=== PATIENT | male | born 1975 | race Asian ===

== ENCOUNTER 2022-05-29 15:38 | Emergency (ER) | payer MEDICAID, OTHER ==
[~2022-05-29] VITALS: Ht 177.8 cm; Wt 68.2 kg
[~2022-05-29 15:38] MED LIST: ARIP10TA38 PO
[2022-05-29 15:39] VITALS: BP 121/72
[2022-05-29] MEDS ORDERED: ACETAMINOPHEN 500 MG TABLET PO ONE (15:45)
[2022-05-29 15:58] LABS: COVID AG,FIA SOURCE NASOPHARYNGEAL
[2022-05-29 16:19] LABS: INFLUENZA TYPE A NEGATIVE FOR TYPE A (NEGATIVE); INFLUENZA TYPE B NEGATIVE FOR TYPE B (NEGATIVE)
== END 2022-05-29 16:40 | disposition home or self-care (01) ==
LOC: EMS 15:47
DX: J11.1 Influenza due to unidentified influenza virus with other respiratory manifestations (principal); F20.9 Schizophrenia, unspecified; F17.210 Nicotine dependence, cigarettes, uncomplicated; F12.90 Cannabis use, unspecified, uncomplicated; F15.90 Other stimulant use, unspecified, uncomplicated; Z59.00 Homelessness unspecified; Z20.822 Contact with and (suspected) exposure to COVID-19
CPT/HCPCS: 87804; 99283

== ENCOUNTER 2023-08-09 16:48 | Inpatient (IN) | payer MEDICAID, OTHER ==
[~2023-08-09] VITALS: Ht 175.3 cm; Wt 76.2 kg
[2023-08-09 20:37] LABS: BASOPHILS % (AUTO) 0.7 % (0.0-2.0); EOSINOPHILS % (AUTO) 2.1 % (1.0-6.0); HEMATOCRIT 36.4 % (41-53); HEMOGLOBIN 11.9 g/dL (13.5-17.5); LYMPHOCYTES % (AUTO) 18.7 % (22.0-44.0); MEAN CORPUSCULAR HEMOGLOBIN 29.8 pg (26.0-34.0); MEAN CORPUSCULAR HGB CONC 32.8 G/dL (31.0-37.0); MEAN CORPUSCULAR VOLUME 91 fL (80-100); MONOCYTES # (AUTO) 1.5 K/uL (0.1-1.0); MONOCYTES % (AUTO) 13.5 % (2.0-9.0); NEUTROPHILS # (AUTO) 7.1 K/uL (1.8-7.7); PLATELET COUNT (AUTO) 265 K/uL (150-450); RED CELL DISTRIBUTION WIDTH 13.2 % (11.5-14.5); WHITE BLOOD COUNT (AUTO) 10.9 K/uL (4.5-11.0)
[2023-08-09] MEDS: LORazepam 2 MG TABLET PO ONE (20:38)
[2023-08-09] MEDS: RisperiDONE 1 MG TABLET PO ONE (20:38)
[2023-08-09] MEDS: DiphenhydrAMINE HCL 25 MG CAPSULE PO ONE (20:38)
[2023-08-09 20:47] LABS: ANION GAP 12 mmol/L (8-16); CALCIUM, TOTAL 9.4 mg/dL (8.8-10.5); CARBON DIOXIDE 26 mmol/L (22-29); CHLORIDE 101 mmol/L (98-107); CREATININE 1.08 mg/dL (0.60-1.30); GLOMERULAR FILTR. RATE CALC > 60 mL/min (>60); GLUCOSE,RANDOM 88 mg/dL (70-110); POTASSIUM 3.6 mmol/L (3.5-5.1); SODIUM SERUM 139 mmol/L (136-145); UREA NITROGEN, BLOOD 21 mg/dL (7-18)
[2023-08-09 20:52] LABS: ALANINE AMINOTRANSFERASE 32 U/L (12-78); ALBUMIN 4.2 g/dL (3.4-5.0); ALKALINE PHOSPHATASE 87 U/L (46-116); ASPARTATE AMINOTRANSFERASE 41 U/L (15-37); BILIRUBIN,TOTAL 0.8 mg/dL (0.1-1.0); TOTAL PROTEIN, SERUM 7.7 g/dL (6.4-8.2)
[2023-08-09 21:35] LABS: ALCOHOL, BLOOD (SERUM) < 3 mg/dL (0-10)
[2023-08-09 23:28] LABS: COVID AG,FIA SOURCE NASAL SWAB
[2023-08-09 23:47] LABS: SARS-COV2 (COVID) ANTIGEN,FIA Negative (Negative)
[2023-08-10 00:20] VITALS: BP 110/61; PULSE 76; RESP 19; TEMP 97.4; O2SAT 98
[2023-08-10] MEDS ORDERED: MAG HYDROX/ALUMINUM HYD/SIMETH ES 30 ML SUSPENSION UDCUP PO PRN (05:15)
[2023-08-10] MEDS ORDERED: LOPERAMIDE HCL 2 MG CAPSULE PO PRN (05:15)
[2023-08-10] MEDS ORDERED: PETROLATUM,WHITE 28 GM JELLY TP PRN (05:15)
[2023-08-10] MEDS ORDERED: DOCUSATE SODIUM 100 MG CAPSULE PO PRN (05:15)
[2023-08-10] MEDS ORDERED: ACETAMINOPHEN 325 MG TABLET PO PRN (05:15)
[2023-08-10] MEDS ORDERED: MAGNESIUM HYDROXIDE SUSPENSION 30 ML UDCUP PO PRN (05:15)
[2023-08-10] MEDS ORDERED: OMEPRAZOLE 20 MG CAPSULE PO PRN (05:15)
[2023-08-10] MEDS ORDERED: ALBUTEROL SULFATE HFA 90 MCG/PUFF 8 GM INHALER IH PRN (05:15)
[2023-08-10] MEDS ORDERED: BENZOCAINE/MENTHOL LOZENGE PO PRN (05:15)
[2023-08-10] MEDS ORDERED: ONDANSETRON HCL 4 MG TABLET PO PRN (05:15)
[2023-08-10] MEDS ORDERED: CloNIDine HCL 0.1 MG TABLET PO PRN (05:15)
[2023-08-10 08:22] VITALS: BP 109/62; PULSE 104; RESP 17; TEMP 97.6; O2SAT 99
[2023-08-10 16:57] VITALS: BP 106/66; PULSE 81; RESP 18; TEMP 97.6
[2023-08-10] MEDS: IBUPROFEN 600 MG TABLET PO PRN (16:58)
[2023-08-10 18:09] VITALS: BP 109/76; PULSE 91; RESP 18; TEMP 97.8; O2SAT 0
[2023-08-10] MEDS: ZOLPIDEM TARTRATE 10 MG TABLET PO PRN (21:33)
[2023-08-10 22:00] VITALS: BP 95/52; PULSE 96; RESP 18; TEMP 98.6; O2SAT 97
[2023-08-10] MEDS: LORazepam 2 MG TABLET PO PRN (22:02)
[2023-08-11] MEDS: HALOPERIDOL 5 MG TABLET PO PRN (09:01)
[2023-08-11] MEDS: ARIPiprazole 10 MG TABLET PO SCH (09:01)
[2023-08-11 09:27] VITALS: BP 105/69; PULSE 84; RESP 18; TEMP 97.3; O2SAT 100
[2023-08-11 09:33] LABS: APPEARANCE,URINE CLEAR (CLEAR); BILIRUBIN,URINE NEGATIVE (NEGATIVE); COLOR,URINE LIGHT YELLOW (YELLOW); GLUCOSE, URINE (UA) NEGATIVE (NEGATIVE); KETONES,URINE NEGATIVE (NEGATIVE); LEUKOCYTE ESTERASE ,URINE SMALL (NEGATIVE); NITRATE,URINE NEGATIVE (NEGATIVE); OCCULT BLOOD,URINE NEGATIVE (NEGATIVE); PH,URINE 5.5 (5.0-8.0); PROTEIN,URINE NEGATIVE (NEGATIVE); SPECIFIC GRAVITIY, URINE 1.021 (1.003-1.030); UROBILINOGEN,URINE <=1.0 mg/dL (<=1.0)
[2023-08-11 09:36] LABS: PH,URINE DRUG SCREEN 5.5 (5.0-8.0)
[2023-08-11 09:42] LABS: ALCOHOL, URINE DRUG SCREEN NEGATIVE (NEGATIVE); AMPHET/METH SCREEN,URINE POSITIVE (NEGATIVE); BARBITURATE SCREEN, URINE NEGATIVE (NEGATIVE); BENZODIAZEPINES SCREEN,URINE NEGATIVE (NEGATIVE); CANNABINOID SCREEN,URINE NEGATIVE (NEGATIVE); COCAINE SCREEN,URINE NEGATIVE (NEGATIVE); METHADONE SCREEN, URINE NEGATIVE (NEGATIVE); OPIATE SCREEN,URINE NEGATIVE (NEGATIVE); PHENCYCLIDINE SCREEN,URINE NEGATIVE (NEGATIVE)
[2023-08-11 09:47] LABS: BACTERIA,URINE Rare /HPF (None Seen); RBC,URINE None Seen /HPF (0-2)
[2023-08-11] MEDS: BACITRACIN 28 GM OINTMENT TP PRN (15:20)
[2023-08-11 15:35] VITALS: BP 111/71; PULSE 89; RESP 17; TEMP 97.6
[2023-08-11 16:35] VITALS: BP 111/68; PULSE 71; RESP 17; TEMP 98
[2023-08-11 22:05] VITALS: BP 108/66; PULSE 82; RESP 18; TEMP 97.8
[2023-08-12 08:42] VITALS: BP 132/86; PULSE 88; RESP 18; TEMP 96.7; O2SAT 99
[2023-08-13 10:14] VITALS: BP 110/72; PULSE 70; RESP 18; TEMP 97; O2SAT 98
[2023-08-13] MEDS ORDERED: ARIP10TA38 PO (10:53)
== END 2023-08-13 16:37 | disposition home or self-care (01) | DRG 750 ==
LOC: EMS 16:52 → 3EC 21:40
PROVIDERS: ADMIT Psychiatry & Neurology Psychiatry; ATTEND Psychiatry & Neurology Psychiatry
DX: F25.9 Schizoaffective disorder, unspecified (principal); F29 Unspecified psychosis not due to a substance or known physiological condition; R45.851 Suicidal ideations; G47.00 Insomnia, unspecified; F32.A Depression, unspecified; F10.90 Alcohol use, unspecified, uncomplicated; Z20.822 Contact with and (suspected) exposure to COVID-19; F17.210 Nicotine dependence, cigarettes, uncomplicated; F15.10 Other stimulant abuse, uncomplicated; K59.00 Constipation, unspecified; F41.9 Anxiety disorder, unspecified; Z59.00 Homelessness unspecified; Z79.899 Other long term (current) drug therapy
CPT/HCPCS: 80053; 80307; 81001; 85025; 87081; 99285; G0480

== ENCOUNTER 2023-08-17 05:07 | Emergency (ER) | payer MEDICAID, OTHER ==
[~2023-08-17] VITALS: Ht 182.9 cm; Wt 72.0 kg
[2023-08-17 05:30] VITALS: TEMP 97.8
[2023-08-17 06:45] LABS: BASOPHILS % (AUTO) 0.7 % (0.0-2.0); EOSINOPHILS % (AUTO) 4.3 % (1.0-6.0); HEMATOCRIT 35.1 % (41-53); HEMOGLOBIN 11.6 g/dL (13.5-17.5); LYMPHOCYTES # (AUTO) 1.6 K/uL (1.0-4.8); LYMPHOCYTES % (AUTO) 22.6 % (22.0-44.0); MEAN CORPUSCULAR HGB CONC 33.1 G/dL (31.0-37.0); MEAN CORPUSCULAR VOLUME 91 fL (80-100); MONOCYTES # (AUTO) 0.9 K/uL (0.1-1.0); MONOCYTES % (AUTO) 11.9 % (2.0-9.0); NEUTROPHILS # (AUTO) 4.4 K/uL (1.8-7.7); NEUTROPHILS % (AUTO) 60.5 % (40.0-70.0); PLATELET COUNT (AUTO) 303 K/uL (150-450); RED BLOOD CELL COUNT(AUTO) 3.87 MIL/uL (4.50-5.90); RED CELL DISTRIBUTION WIDTH 13.2 % (11.5-14.5); WHITE BLOOD COUNT (AUTO) 7.2 K/uL (4.5-11.0)
[2023-08-17 06:54] LABS: ANION GAP 7 mmol/L (8-16); CALCIUM, TOTAL 9.5 mg/dL (8.8-10.5); CARBON DIOXIDE 30 mmol/L (22-29); CHLORIDE 105 mmol/L (98-107); CREATININE 0.96 mg/dL (0.60-1.30); GLOMERULAR FILTR. RATE CALC > 60 mL/min (>60); GLUCOSE,RANDOM 83 mg/dL (70-110); POTASSIUM 4.2 mmol/L (3.5-5.1); SODIUM SERUM 142 mmol/L (136-145); UREA NITROGEN, BLOOD 21 mg/dL (7-18)
[2023-08-17 07:01] LABS: ALANINE AMINOTRANSFERASE 21 U/L (12-78); ALBUMIN 3.7 g/dL (3.4-5.0); ALKALINE PHOSPHATASE 82 U/L (46-116); ASPARTATE AMINOTRANSFERASE 18 U/L (15-37); BILIRUBIN,TOTAL 0.4 mg/dL (0.1-1.0); LIPASE 14 U/L (16-77); TOTAL PROTEIN, SERUM 7.4 g/dL (6.4-8.2)
[2023-08-17 07:10] LABS: ALCOHOL, BLOOD (SERUM) < 3 mg/dL (0-10)
[2023-08-17] MEDS: ACETAMINOPHEN 500 MG TABLET PO ONE (07:15)
[2023-08-17 07:53] LABS: ALCOHOL, URINE DRUG SCREEN NEGATIVE (NEGATIVE); AMPHET/METH SCREEN,URINE POSITIVE (NEGATIVE); BARBITURATE SCREEN, URINE NEGATIVE (NEGATIVE); BENZODIAZEPINES SCREEN,URINE NEGATIVE (NEGATIVE); CANNABINOID SCREEN,URINE NEGATIVE (NEGATIVE); COCAINE SCREEN,URINE NEGATIVE (NEGATIVE); METHADONE SCREEN, URINE NEGATIVE (NEGATIVE); OPIATE SCREEN,URINE NEGATIVE (NEGATIVE); PHENCYCLIDINE SCREEN,URINE NEGATIVE (NEGATIVE)
[2023-08-17 08:43] VITALS: BP 118/72; PULSE 85; RESP 18
== END 2023-08-17 08:47 | disposition home or self-care (01) ==
LOC: EMS 05:08
DX: R44.0 Auditory hallucinations (principal); F15.90 Other stimulant use, unspecified, uncomplicated; F20.9 Schizophrenia, unspecified; F17.210 Nicotine dependence, cigarettes, uncomplicated; F12.90 Cannabis use, unspecified, uncomplicated; Z59.00 Homelessness unspecified; Z98.890 Other specified postprocedural states
CPT/HCPCS: 99284; 80053; 83690; 85025; 36415; 80307; G0480

== ENCOUNTER 2023-10-19 22:29 | Emergency (ER) | payer OTHER ==
[~2023-10-19] VITALS: Ht 180.3 cm; Wt 175.0 kg
[2023-10-19 22:37] VITALS: BP 119/77; PULSE 95; RESP 17; TEMP 98.4
== END 2023-10-19 23:08 | disposition left against medical advice (07) ==
LOC: EMS 22:30
DX: R51.9 Headache, unspecified (principal); Z53.21 Procedure and treatment not carried out due to patient leaving prior to being seen by health care provider
CPT/HCPCS: 99281; Z7502

== ENCOUNTER 2023-11-13 20:42 | Emergency (ER) | payer OTHER ==
[~2023-11-13] VITALS: Ht 180.3 cm; Wt 80.9 kg
[2023-11-13 20:48] VITALS: BP 111/58; PULSE 86; RESP 16; TEMP 99.1
[2023-11-13] MEDS: ACETAMINOPHEN 500 MG TABLET PO ONE (21:05)
== END 2023-11-13 23:38 | disposition left against medical advice (07) ==
LOC: EMS 20:43
DX: R51.9 Headache, unspecified (principal); Z53.21 Procedure and treatment not carried out due to patient leaving prior to being seen by health care provider

== ENCOUNTER 2023-12-05 00:02 | Emergency (ER) | payer OTHER | END 2023-12-05 00:44 | disposition left against medical advice (07) | LOC: EMS 00:04 | DX: Z53.21 Procedure and treatment not carried out due to patient leaving prior to being seen by health care provider (principal) ==

== ENCOUNTER 2023-12-10 07:19 | Emergency (ER) | payer OTHER ==
[~2023-12-10] VITALS: Ht 180.3 cm; Wt 75.0 kg
[2023-12-10 07:33] VITALS: TEMP 98.2
[2023-12-10 08:00] LABS: BASOPHILS % (AUTO) 0.7 % (0.0-2.0); EOSINOPHILS % (AUTO) 2.3 % (1.0-6.0); HEMATOCRIT 32.1 % (41-53); HEMOGLOBIN 10.1 g/dL (13.5-17.5); LYMPHOCYTES # (AUTO) 1.7 K/uL (1.0-4.8); MEAN CORPUSCULAR HEMOGLOBIN 26.9 pg (26.0-34.0); MEAN CORPUSCULAR HGB CONC 31.5 G/dL (31.0-37.0); MEAN CORPUSCULAR VOLUME 85 fL (80-100); MONOCYTES % (AUTO) 10.5 % (2.0-9.0); NEUTROPHILS # (AUTO) 6.4 K/uL (1.8-7.7); NEUTROPHILS % (AUTO) 68.5 % (40.0-70.0); PLATELET COUNT (AUTO) 434 K/uL (150-450); RED BLOOD CELL COUNT(AUTO) 3.77 MIL/uL (4.50-5.90); RED CELL DISTRIBUTION WIDTH 14.8 % (11.5-14.5); WHITE BLOOD COUNT (AUTO) 9.3 K/uL (4.5-11.0)
[2023-12-10 08:09] LABS: ANION GAP 9 mmol/L (8-16); CALCIUM, TOTAL 8.6 mg/dL (8.8-10.5); CARBON DIOXIDE 27 mmol/L (22-29); CHLORIDE 104 mmol/L (98-107); CREATININE 0.84 mg/dL (0.60-1.30); GLOMERULAR FILTR. RATE CALC > 60 mL/min (>60); GLUCOSE,RANDOM 104 mg/dL (70-110); POTASSIUM 3.6 mmol/L (3.5-5.1); SODIUM SERUM 139 mmol/L (136-145); UREA NITROGEN, BLOOD 9 mg/dL (7-18)
[2023-12-10 08:09] LABS: COVID AG,FIA SOURCE NASAL SWAB
[2023-12-10 08:15] LABS: ALCOHOL, BLOOD (SERUM) < 3 mg/dL (0-10)
[2023-12-10 08:17] LABS: TROPONIN I-HIGH SENSITIVITY Less Than 4 ng/L (<76)
[2023-12-10 08:57] LABS: SARS-COV2 (COVID) ANTIGEN,FIA Negative (Negative)
[2023-12-10] MEDS: LIDOCAINE 5% TRANSDERMAL PATCH TD ONE (09:57)
[2023-12-10] MEDS: ACETAMINOPHEN 500 MG TABLET PO ONE (09:57)
[2023-12-10 11:30] VITALS: BP 115/68; PULSE 81; RESP 18
[2023-12-10] MEDS: HALOPERIDOL 5 MG TABLET PO ONE (11:34)
== END 2023-12-10 11:42 | disposition home or self-care (01) ==
LOC: EMS 07:20
DX: F20.9 Schizophrenia, unspecified (principal); R06.02 Shortness of breath; F17.210 Nicotine dependence, cigarettes, uncomplicated; F12.90 Cannabis use, unspecified, uncomplicated; F15.10 Other stimulant abuse, uncomplicated; Z20.822 Contact with and (suspected) exposure to COVID-19
CPT/HCPCS: 99284; 87426; 80048; 84484; 85025; 36415; 93005; G0480

== ENCOUNTER 2024-01-01 03:07 | Emergency (ER) | payer OTHER ==
[~2024-01-01] VITALS: Ht 180.3 cm; Wt 77.3 kg
[2024-01-01 03:30] LABS: APPEARANCE,URINE CLEAR (CLEAR); BILIRUBIN,URINE NEGATIVE (NEGATIVE); COLOR,URINE YELLOW (YELLOW); GLUCOSE, URINE (UA) NEGATIVE (NEGATIVE); KETONES,URINE NEGATIVE (NEGATIVE); LEUKOCYTE ESTERASE ,URINE SMALL (NEGATIVE); NITRATE,URINE NEGATIVE (NEGATIVE); OCCULT BLOOD,URINE NEGATIVE (NEGATIVE); PROTEIN,URINE TRACE mg/dL (NEGATIVE); SPECIFIC GRAVITIY, URINE 1.029 (1.003-1.030); UROBILINOGEN,URINE <=1.0 mg/dL (<=1.0)
[2024-01-01 03:37] LABS: ALCOHOL, URINE DRUG SCREEN NEGATIVE (NEGATIVE); AMPHET/METH SCREEN,URINE POSITIVE (NEGATIVE); BARBITURATE SCREEN, URINE NEGATIVE (NEGATIVE); BENZODIAZEPINES SCREEN,URINE NEGATIVE (NEGATIVE); CANNABINOID SCREEN,URINE NEGATIVE (NEGATIVE); COCAINE SCREEN,URINE NEGATIVE (NEGATIVE); METHADONE SCREEN, URINE NEGATIVE (NEGATIVE); OPIATE SCREEN,URINE NEGATIVE (NEGATIVE); PHENCYCLIDINE SCREEN,URINE NEGATIVE (NEGATIVE)
[2024-01-01 03:54] LABS: BACTERIA,URINE Moderate /HPF (None Seen); RBC,URINE 0-2 /HPF (0-2); SQUAMOUS EPITHELIAL CELL,UR Rare /LPF (None Seen)
[2024-01-01 04:00] VITALS: BP 119/74; PULSE 99; RESP 16; TEMP 98.3
[2024-01-01] MEDS ORDERED: CEPH-558 PO (04:15)
[2024-01-01] MEDS: CEPHALEXIN MONOHYDRATE 500 MG CAPSULE PO ONE (04:24)
[2024-01-01] MEDS ORDERED: BENZ-247 PO (21:11)
[2024-01-01] MEDS ORDERED: HALO5TAB23 PO (21:11)
== END 2024-01-01 04:47 | disposition home or self-care (01) ==
LOC: EMS 03:07
DX: N39.0 Urinary tract infection, site not specified (principal); F15.10 Other stimulant abuse, uncomplicated; F20.9 Schizophrenia, unspecified; F17.210 Nicotine dependence, cigarettes, uncomplicated; F12.90 Cannabis use, unspecified, uncomplicated; Z59.00 Homelessness unspecified; Z98.890 Other specified postprocedural states
CPT/HCPCS: 80307; 81001; 87086; 87186; 99283

== ENCOUNTER 2024-01-01 14:17 | Emergency (ER) | payer OTHER ==
[~2024-01-01] VITALS: Ht 180.3 cm; Wt 77.0 kg
[~2024-01-01 14:17] MED LIST changes: -ARIP10TA38 PO; +CEPH-558 PO
[2024-01-01 14:21] VITALS: TEMP 98.5
[2024-01-01 18:22] LABS: BASOPHILS % (AUTO) 1.1 % (0.0-2.0); EOSINOPHILS % (AUTO) 1.5 % (1.0-6.0); HEMATOCRIT 32.6 % (41-53); HEMOGLOBIN 10.2 g/dL (13.5-17.5); LYMPHOCYTES # (AUTO) 1.6 K/uL (1.0-4.8); LYMPHOCYTES % (AUTO) 15.7 % (22.0-44.0); MEAN CORPUSCULAR HEMOGLOBIN 26.2 pg (26.0-34.0); MEAN CORPUSCULAR HGB CONC 31.3 G/dL (31.0-37.0); MEAN CORPUSCULAR VOLUME 84 fL (80-100); MONOCYTES # (AUTO) 0.9 K/uL (0.1-1.0); MONOCYTES % (AUTO) 8.7 % (2.0-9.0); NEUTROPHILS # (AUTO) 7.7 K/uL (1.8-7.7); PLATELET COUNT (AUTO) 547 K/uL (150-450); RED BLOOD CELL COUNT(AUTO) 3.89 MIL/uL (4.50-5.90); RED CELL DISTRIBUTION WIDTH 18.2 % (11.5-14.5); WHITE BLOOD COUNT (AUTO) 10.5 K/uL (4.5-11.0)
[2024-01-01 18:29] LABS: ANION GAP 8 mmol/L (8-16); CALCIUM, TOTAL 9.2 mg/dL (8.8-10.5); CARBON DIOXIDE 29 mmol/L (22-29); CHLORIDE 102 mmol/L (98-107); GLOMERULAR FILTR. RATE CALC > 60 mL/min (>60); GLUCOSE,RANDOM 120 mg/dL (70-110); POTASSIUM 4.2 mmol/L (3.5-5.1); SODIUM SERUM 139 mmol/L (136-145); UREA NITROGEN, BLOOD 29 mg/dL (7-18)
[2024-01-01 18:31] LABS: ALCOHOL, BLOOD (SERUM) < 3 mg/dL (0-10)
[2024-01-01 19:04] LABS: COVID AG,FIA SOURCE NASAL SWAB
[2024-01-01 19:07] LABS: ALCOHOL, URINE DRUG SCREEN NEGATIVE (NEGATIVE); AMPHET/METH SCREEN,URINE POSITIVE (NEGATIVE); BARBITURATE SCREEN, URINE NEGATIVE (NEGATIVE); BENZODIAZEPINES SCREEN,URINE NEGATIVE (NEGATIVE); CANNABINOID SCREEN,URINE NEGATIVE (NEGATIVE); COCAINE SCREEN,URINE NEGATIVE (NEGATIVE); METHADONE SCREEN, URINE NEGATIVE (NEGATIVE); OPIATE SCREEN,URINE NEGATIVE (NEGATIVE); PHENCYCLIDINE SCREEN,URINE NEGATIVE (NEGATIVE)
[2024-01-01 19:23] LABS: SARS-COV2 (COVID) ANTIGEN,FIA Negative (Negative)
[2024-01-01 20:39] VITALS: BP 131/75; PULSE 107; RESP 18
[2024-01-01] MEDS ORDERED: BENZ-247 PO (21:11)
[2024-01-01] MEDS ORDERED: HALO5TAB23 PO (21:11)
[2024-01-01] MEDS: ARIPiprazole 10 MG TABLET PO ONE (21:25)
== END 2024-01-01 21:38 | disposition home or self-care (01) ==
LOC: EMS 14:19
DX: F15.10 Other stimulant abuse, uncomplicated (principal); F25.9 Schizoaffective disorder, unspecified; F17.210 Nicotine dependence, cigarettes, uncomplicated; F12.90 Cannabis use, unspecified, uncomplicated; Z20.822 Contact with and (suspected) exposure to COVID-19; Z59.00 Homelessness unspecified
CPT/HCPCS: 99283; 87426; 80048; 85025; 36415; 80307; G0480

== ENCOUNTER 2024-01-03 06:09 | Inpatient (IN) | payer MEDICAID, OTHER ==
[~2024-01-03] VITALS: Ht 180.3 cm; Wt 74.8 kg
[~2024-01-03 06:09] MED LIST changes: +BENZ-247 PO; +HALO5TAB23 PO
[2024-01-03] MEDS: GENTAMICIN SULFATE 0.3% OPHTHALMIC SOLUTION 5 ML OD ONE (07:36)
[2024-01-03 07:39] LABS: BASOPHILS % (AUTO) 1.5 % (0.0-2.0); EOSINOPHILS % (AUTO) 6.5 % (1.0-6.0); HEMATOCRIT 32.4 % (41-53); HEMOGLOBIN 10.1 g/dL (13.5-17.5); LYMPHOCYTES # (AUTO) 1.3 K/uL (1.0-4.8); LYMPHOCYTES % (AUTO) 21.2 % (22.0-44.0); MEAN CORPUSCULAR HEMOGLOBIN 26.5 pg (26.0-34.0); MEAN CORPUSCULAR HGB CONC 31.2 G/dL (31.0-37.0); MEAN CORPUSCULAR VOLUME 85 fL (80-100); MONOCYTES # (AUTO) 0.8 K/uL (0.1-1.0); MONOCYTES % (AUTO) 12.9 % (2.0-9.0); NEUTROPHILS # (AUTO) 3.7 K/uL (1.8-7.7); NEUTROPHILS % (AUTO) 57.9 % (40.0-70.0); PLATELET COUNT (AUTO) 533 K/uL (150-450); RED BLOOD CELL COUNT(AUTO) 3.82 MIL/uL (4.50-5.90); RED CELL DISTRIBUTION WIDTH 18.5 % (11.5-14.5); WHITE BLOOD COUNT (AUTO) 6.3 K/uL (4.5-11.0)
[2024-01-03 07:40] LABS: COVID AG,FIA SOURCE NASAL SWAB
[2024-01-03 07:49] LABS: SARS-COV2 (COVID) ANTIGEN,FIA Negative (Negative)
[2024-01-03 07:50] LABS: ANION GAP 6 mmol/L (8-16); CALCIUM, TOTAL 8.8 mg/dL (8.8-10.5); CARBON DIOXIDE 30 mmol/L (22-29); CHLORIDE 104 mmol/L (98-107); CREATININE 1.06 mg/dL (0.60-1.30); GLOMERULAR FILTR. RATE CALC > 60 mL/min (>60); GLUCOSE,RANDOM 119 mg/dL (70-110); POTASSIUM 3.4 mmol/L (3.5-5.1); SODIUM SERUM 140 mmol/L (136-145); UREA NITROGEN, BLOOD 22 mg/dL (7-18)
[2024-01-03 07:54] LABS: ALCOHOL, BLOOD (SERUM) < 3 mg/dL (0-10)
[2024-01-03 09:09] LABS: PH,URINE DRUG SCREEN 5.5 (5.0-8.0)
[2024-01-03 09:27] LABS: ALCOHOL, URINE DRUG SCREEN NEGATIVE (NEGATIVE); AMPHET/METH SCREEN,URINE POSITIVE (NEGATIVE); BARBITURATE SCREEN, URINE NEGATIVE (NEGATIVE); BENZODIAZEPINES SCREEN,URINE NEGATIVE (NEGATIVE); CANNABINOID SCREEN,URINE POSITIVE (NEGATIVE); COCAINE SCREEN,URINE NEGATIVE (NEGATIVE); METHADONE SCREEN, URINE NEGATIVE (NEGATIVE); OPIATE SCREEN,URINE NEGATIVE (NEGATIVE); PHENCYCLIDINE SCREEN,URINE NEGATIVE (NEGATIVE)
[2024-01-03] MEDS ORDERED: OLANZapine 5 MG RAPDIS TABLET PO PRN (09:45)
[2024-01-03 10:00] LABS: APPEARANCE,URINE HAZY (CLEAR); BILIRUBIN,URINE NEGATIVE (NEGATIVE); COLOR,URINE YELLOW (YELLOW); GLUCOSE, URINE (UA) NEGATIVE (NEGATIVE); KETONES,URINE NEGATIVE (NEGATIVE); LEUKOCYTE ESTERASE ,URINE TRACE (NEGATIVE); NITRATE,URINE NEGATIVE (NEGATIVE); OCCULT BLOOD,URINE NEGATIVE (NEGATIVE); PH,URINE 5.5 (5.0-8.0); PROTEIN,URINE 30-70 mg/dL (NEGATIVE); SPECIFIC GRAVITIY, URINE 1.034 (1.003-1.030); UROBILINOGEN,URINE <=1.0 mg/dL (<=1.0)
[2024-01-03 10:10] LABS: BACTERIA,URINE None Seen /HPF (None Seen); CALCIUM OXALATE CRYSTALS,UR Few /LPF (None Seen); RBC,URINE 0-2 /HPF (0-2)
[2024-01-03] MEDS: CEPHALEXIN MONOHYDRATE 500 MG CAPSULE PO ONE (10:44)
[2024-01-03] MEDS: POTASSIUM CHLORIDE 20 MEQ ER TABLET PO ONE (10:44)
[2024-01-03 11:30] VITALS: BP 133/87; PULSE 98; RESP 18; TEMP 97.7; O2SAT 98
[2024-01-03] MEDS ORDERED: BACITRACIN 28 GM OINTMENT TP PRN (12:00)
[2024-01-03] MEDS ORDERED: LOPERAMIDE HCL 2 MG CAPSULE PO PRN (12:00)
[2024-01-03] MEDS ORDERED: MAG HYDROX/ALUMINUM HYD/SIMETH ES 30 ML SUSPENSION UDCUP PO PRN (12:00)
[2024-01-03] MEDS ORDERED: PETROLATUM,WHITE 28 GM JELLY TP PRN (12:00)
[2024-01-03] MEDS ORDERED: ONDANSETRON HCL 4 MG TABLET PO PRN (12:00)
[2024-01-03] MEDS ORDERED: MAGNESIUM HYDROXIDE SUSPENSION 30 ML UDCUP PO PRN (12:00)
[2024-01-03] MEDS ORDERED: BENZOCAINE/MENTHOL LOZENGE PO PRN (12:00)
[2024-01-03] MEDS ORDERED: IBUPROFEN 600 MG TABLET PO PRN (12:00)
[2024-01-03] MEDS ORDERED: DOCUSATE SODIUM 100 MG CAPSULE PO PRN (12:00)
[2024-01-03] MEDS ORDERED: ALBUTEROL SULFATE HFA 90 MCG/PUFF 8 GM INHALER IH PRN (12:00)
[2024-01-03] MEDS ORDERED: ACETAMINOPHEN 325 MG TABLET PO PRN (12:00)
[2024-01-03] MEDS ORDERED: CloNIDine HCL 0.1 MG TABLET PO PRN (12:00)
[2024-01-03] MEDS ORDERED: OMEPRAZOLE 20 MG CAPSULE PO PRN (12:00)
[2024-01-03] MEDS: CEPHALEXIN MONOHYDRATE 500 MG CAPSULE PO SCH (16:33)
[2024-01-03 20:56] VITALS: RESP 19; TEMP 98
[2024-01-03] MEDS: OLANZapine 5 MG RAPDIS TABLET PO SCH (21:15)
[2024-01-03] MEDS ORDERED: PALIPERIDONE PALMITATE 234 MG/1.5 ML SYRINGE IM ONE (21:45)
[2024-01-04 09:18] VITALS: BP 106/69; PULSE 88; RESP 18; TEMP 97.5; O2SAT 88
[2024-01-04] MEDS: BuPROPion HCL XL 150 MG ER TABLET PO SCH (10:59)
[2024-01-04] MEDS: PALIPERIDONE PALMITATE 234 MG/1.5 ML SYRINGE IM ONE (11:00)
[2024-01-04 20:12] VITALS: BP 101/73; PULSE 101; RESP 18; TEMP 98.1
[2024-01-05 10:23] VITALS: BP 103/68; PULSE 97; RESP 18; TEMP 97.8; O2SAT 98
[2024-01-05 22:03] VITALS: BP 103/67; PULSE 100; RESP 18; TEMP 97.7; O2SAT 99
[2024-01-06 10:16] VITALS: BP 116/76; PULSE 99; RESP 19; TEMP 97.7; O2SAT 100
[2024-01-06 21:41] VITALS: BP 99/59; PULSE 99; RESP 19; TEMP 98.4; O2SAT 100
[2024-01-07 09:46] VITALS: BP 107/67; PULSE 91; RESP 18; TEMP 97.4; O2SAT 100
[2024-01-07 21:17] VITALS: BP 103/64; PULSE 85; RESP 18; TEMP 98.4
[2024-01-07] MEDS: ZOLPIDEM TARTRATE 10 MG TABLET PO PRN (21:52)
[2024-01-08 08:59] VITALS: BP 115/77; PULSE 106; RESP 19; TEMP 97.6; O2SAT 98
[2024-01-08] MEDS: PALIPERIDONE PALMITATE 156 MG/ML SYRINGE IM ONE (10:35)
[2024-01-08 21:06] VITALS: BP 115/79; PULSE 76; RESP 18; TEMP 98.2; O2SAT 98
[2024-01-09 09:36] VITALS: BP 100/62; PULSE 98; RESP 17; TEMP 97.9; O2SAT 100
[2024-01-09 20:33] VITALS: BP 103/68; PULSE 84; RESP 18; TEMP 97.5
[2024-01-09] MEDS: OLANZapine 10 MG RAPDIS TABLET PO SCH (20:38)
[2024-01-10] MEDS: BuPROPion HCL XL 150 MG ER TABLET PO SCH (08:06)
[2024-01-10 11:39] VITALS: BP 92/61; PULSE 103; RESP 17; TEMP 97
[2024-01-10 21:36] VITALS: BP 95/60; PULSE 101; RESP 17; TEMP 97.1; O2SAT 98
[2024-01-10] MEDS: LORazepam 2 MG TABLET PO PRN (21:49)
[2024-01-10] MEDS ORDERED: BUPR-514 PO (22:28)
[2024-01-10] MEDS ORDERED: NALT50TA33 PO (22:28)
[2024-01-10] MEDS ORDERED: OLAN10TA26 PO (22:28)
[2024-01-10] MEDS ORDERED: MELA5TAB40 PO (22:28)
[2024-01-11 08:00] VITALS: BP 104/61; PULSE 75; RESP 17; TEMP 97.5; O2SAT 98
== END 2024-01-11 12:21 | disposition home or self-care (01) | DRG 750 ==
LOC: EMS 06:09 → 3EI 10:47
PROVIDERS: ADMIT Psychiatry & Neurology Psychiatry; ATTEND Psychiatry & Neurology Psychiatry
PROC: GZHZZZZ Group Psychotherapy (ICD-10-PCS; principal; 2024-01-03)
PROC: GZ51ZZZ Individual Psychotherapy, Behavioral (ICD-10-PCS; 2024-01-03)
DX: F25.0 Schizoaffective disorder, bipolar type (principal); G93.41 Metabolic encephalopathy; R45.851 Suicidal ideations; Z91.148 Patient's other noncompliance with medication regimen for other reason; E87.6 Hypokalemia; J44.9 Chronic obstructive pulmonary disease, unspecified; Z20.822 Contact with and (suspected) exposure to COVID-19; K59.00 Constipation, unspecified; N39.0 Urinary tract infection, site not specified; F15.10 Other stimulant abuse, uncomplicated; F17.200 Nicotine dependence, unspecified, uncomplicated; Z59.02 Unsheltered homelessness
CPT/HCPCS: 80048; 80307; 81001; 85025; 87086; 87186; 99285; G0480; 36415-L1; 36415-TC; J2426; Z7502; Z7610

== ENCOUNTER 2024-01-21 04:39 | Emergency (ER) | payer MEDICAID, OTHER ==
[~2024-01-21] VITALS: Ht 180.3 cm; Wt 178.0 kg
[~2024-01-21 04:39] MED LIST changes: -BENZ-247 PO; +BUPR-514 PO; -CEPH-558 PO; -HALO5TAB23 PO; +MELA5TAB40 PO; +NALT50TA33 PO; +OLAN10TA26 PO
[2024-01-21 04:46] VITALS: TEMP 97.5
[2024-01-21 07:35] LABS: BASOPHILS % (AUTO) 0.6 % (0.0-2.0); EOSINOPHILS % (AUTO) 6.6 % (1.0-6.0); HEMATOCRIT 34.6 % (41-53); HEMOGLOBIN 11.1 g/dL (13.5-17.5); LYMPHOCYTES # (AUTO) 1.5 K/uL (1.0-4.8); LYMPHOCYTES % (AUTO) 18.9 % (22.0-44.0); MEAN CORPUSCULAR HEMOGLOBIN 26.6 pg (26.0-34.0); MEAN CORPUSCULAR HGB CONC 32.1 G/dL (31.0-37.0); MEAN CORPUSCULAR VOLUME 83 fL (80-100); MONOCYTES % (AUTO) 12.3 % (2.0-9.0); NEUTROPHILS # (AUTO) 4.9 K/uL (1.8-7.7); NEUTROPHILS % (AUTO) 61.6 % (40.0-70.0); PLATELET COUNT (AUTO) 218 K/uL (150-450); RED BLOOD CELL COUNT(AUTO) 4.17 MIL/uL (4.50-5.90)
[2024-01-21 07:42] VITALS: BP 120/76; PULSE 89; RESP 16
[2024-01-21 07:45] LABS: ANION GAP 9 mmol/L (8-16); CALCIUM, TOTAL 9.2 mg/dL (8.8-10.5); CARBON DIOXIDE 26 mmol/L (22-29); CHLORIDE 102 mmol/L (98-107); CREATININE 0.91 mg/dL (0.60-1.30); GLOMERULAR FILTR. RATE CALC > 60 mL/min (>60); GLUCOSE,RANDOM 75 mg/dL (70-110); SODIUM SERUM 137 mmol/L (136-145); UREA NITROGEN, BLOOD 21 mg/dL (7-18)
[2024-01-21 07:48] LABS: ALCOHOL, BLOOD (SERUM) < 3 mg/dL (0-10)
[2024-01-21 07:54] LABS: COVID AG,FIA SOURCE NASAL SWAB
[2024-01-21 08:15] LABS: SARS-COV2 (COVID) ANTIGEN,FIA Negative (Negative)
[2024-01-21 10:09] LABS: PH,URINE DRUG SCREEN 5.5 (5.0-8.0)
[2024-01-21 10:17] LABS: ALCOHOL, URINE DRUG SCREEN NEGATIVE (NEGATIVE); AMPHET/METH SCREEN,URINE POSITIVE (NEGATIVE); BARBITURATE SCREEN, URINE NEGATIVE (NEGATIVE); BENZODIAZEPINES SCREEN,URINE NEGATIVE (NEGATIVE); CANNABINOID SCREEN,URINE POSITIVE (NEGATIVE); COCAINE SCREEN,URINE NEGATIVE (NEGATIVE); METHADONE SCREEN, URINE NEGATIVE (NEGATIVE); OPIATE SCREEN,URINE NEGATIVE (NEGATIVE); PHENCYCLIDINE SCREEN,URINE NEGATIVE (NEGATIVE)
== END 2024-01-21 11:07 | disposition left against medical advice (07) ==
LOC: EMS 04:42
DX: F20.9 Schizophrenia, unspecified (principal); F15.90 Other stimulant use, unspecified, uncomplicated; F17.210 Nicotine dependence, cigarettes, uncomplicated; F12.90 Cannabis use, unspecified, uncomplicated; Z59.00 Homelessness unspecified; Z98.890 Other specified postprocedural states; Z20.822 Contact with and (suspected) exposure to COVID-19
CPT/HCPCS: 99283; 87426; 80048; 85025; 36415; 80307; G0480

== ENCOUNTER 2024-01-21 19:45 | Emergency (ER) | payer OTHER ==
[~2024-01-21] VITALS: Ht 177.8 cm; Wt 85.0 kg
[2024-01-21 20:05] VITALS: BP 136/74; PULSE 89; RESP 16; TEMP 98
== END 2024-01-21 22:39 | disposition left against medical advice (07) ==
LOC: EMS 19:45
DX: F41.9 Anxiety disorder, unspecified (principal); Z53.21 Procedure and treatment not carried out due to patient leaving prior to being seen by health care provider

== ENCOUNTER 2024-01-22 08:24 | Emergency (ER) | payer OTHER ==
[~2024-01-22] VITALS: Ht 185.4 cm; Wt 72.7 kg
[2024-01-22 08:34] VITALS: BP 117/67; PULSE 89; RESP 18; TEMP 97.9
== END 2024-01-22 15:49 | disposition home or self-care (01) ==
LOC: EMS 08:24
DX: F29 Unspecified psychosis not due to a substance or known physiological condition (principal); F41.9 Anxiety disorder, unspecified; F20.9 Schizophrenia, unspecified; F17.210 Nicotine dependence, cigarettes, uncomplicated; F12.90 Cannabis use, unspecified, uncomplicated; F15.90 Other stimulant use, unspecified, uncomplicated; Z59.00 Homelessness unspecified; Z98.890 Other specified postprocedural states
CPT/HCPCS: 99281; Z7502

== ENCOUNTER 2024-05-06 21:45 | Emergency (ER) | payer OTHER ==
[2024-05-06 22:08] VITALS: BP 111/78; PULSE 90; RESP 18; O2SAT 99
== END 2024-05-07 00:53 | disposition left against medical advice (07) ==
LOC: EMS 21:45
DX: L08.9 Local infection of the skin and subcutaneous tissue, unspecified (principal); Z53.21 Procedure and treatment not carried out due to patient leaving prior to being seen by health care provider

== ENCOUNTER 2024-05-16 23:22 | Emergency (ER) | payer OTHER ==
[~2024-05-16] VITALS: Ht 182.9 cm; Wt 77.3 kg
[2024-05-17 02:44] VITALS: BP 119/68; PULSE 71; RESP 20; TEMP 97.7; O2SAT 99
== END 2024-05-17 05:07 | disposition home or self-care (01) ==
LOC: EMS 23:22
DX: R10.84 Generalized abdominal pain (principal); R07.89 Other chest pain; F20.9 Schizophrenia, unspecified; F17.210 Nicotine dependence, cigarettes, uncomplicated; Z59.00 Homelessness unspecified; Z98.890 Other specified postprocedural states
CPT/HCPCS: 93005; 99283

== ENCOUNTER 2024-06-08 03:58 | Emergency (ER) | payer OTHER ==
[~2024-06-08] VITALS: Ht 180.3 cm; Wt 77.3 kg
[2024-06-08 04:03] VITALS: BP 112/71; PULSE 85; RESP 18; TEMP 97.9; O2SAT 100
== END 2024-06-08 06:00 | disposition home or self-care (01) ==
LOC: EMS 04:00
DX: F20.9 Schizophrenia, unspecified (principal); F17.210 Nicotine dependence, cigarettes, uncomplicated; Z59.41 Food insecurity; Z59.00 Homelessness unspecified; Z98.890 Other specified postprocedural states
CPT/HCPCS: 99281; Z7502

== ENCOUNTER 2024-07-20 06:49 | Emergency (ER) | payer OTHER ==
[~2024-07-20] VITALS: Ht 177.8 cm; Wt 68.2 kg
[~2024-07-20 06:49] MED LIST changes: +ACET-3385 PO
[2024-07-20 07:33] VITALS: BP 112/74; PULSE 72; RESP 16; TEMP 98; O2SAT 98
[2024-07-20 07:58] LABS: EOSINOPHILS % (AUTO) 5.5 % (1.0-6.0); HEMATOCRIT 41.6 % (41-53); HEMOGLOBIN 13.6 g/dL (13.5-17.5); LYMPHOCYTES # (AUTO) 1.5 K/uL (1.0-4.8); LYMPHOCYTES % (AUTO) 22.4 % (22.0-44.0); MEAN CORPUSCULAR HEMOGLOBIN 29.1 pg (26.0-34.0); MEAN CORPUSCULAR HGB CONC 32.6 G/dL (31.0-37.0); MEAN CORPUSCULAR VOLUME 89 fL (80-100); MONOCYTES # (AUTO) 0.7 K/uL (0.1-1.0); MONOCYTES % (AUTO) 10.9 % (2.0-9.0); NEUTROPHILS # (AUTO) 4.1 K/uL (1.8-7.7); NEUTROPHILS % (AUTO) 60.2 % (40.0-70.0); PLATELET COUNT (AUTO) 289 K/uL (150-450); RED BLOOD CELL COUNT(AUTO) 4.66 MIL/uL (4.50-5.90); RED CELL DISTRIBUTION WIDTH 14.1 % (11.5-14.5); WHITE BLOOD COUNT (AUTO) 6.8 K/uL (4.5-11.0)
[2024-07-20 08:06] LABS: ANION GAP 4 mmol/L (8-16); CALCIUM, TOTAL 8.6 mg/dL (8.8-10.5); CARBON DIOXIDE 31 mmol/L (22-29); CHLORIDE 103 mmol/L (98-107); CREATININE 0.97 mg/dL (0.60-1.30); GLOMERULAR FILTR. RATE CALC > 60 mL/min (>60); GLUCOSE,RANDOM 92 mg/dL (70-110); POTASSIUM 3.9 mmol/L (3.5-5.1); SODIUM SERUM 138 mmol/L (136-145); UREA NITROGEN, BLOOD 24 mg/dL (7-18)
[2024-07-20 08:11] LABS: ALCOHOL, BLOOD (SERUM) < 3 mg/dL (0-10)
[2024-07-20] MEDS: ACETAMINOPHEN 500 MG TABLET PO ONE (08:43)
[2024-07-24] MEDS ORDERED: ACET-66 PO (03:36)
== END 2024-07-20 09:03 | disposition home or self-care (01) ==
LOC: EMS 06:50
DX: M79.661 Pain in right lower leg (principal); F17.210 Nicotine dependence, cigarettes, uncomplicated; F20.9 Schizophrenia, unspecified; Z59.00 Homelessness unspecified; Z71.6 Tobacco abuse counseling; Z79.899 Other long term (current) drug therapy
CPT/HCPCS: 99283; 99406; 80048; 85025; 36415; G0480

== ENCOUNTER 2024-07-27 03:37 | Emergency (ER) | payer OTHER ==
[~2024-07-27] VITALS: Ht 177.8 cm; Wt 68.0 kg
[~2024-07-27 03:37] MED LIST changes: +ACET-66 PO
[2024-07-27 03:44] VITALS: BP 114/77; PULSE 66; RESP 16; TEMP 98.1; O2SAT 100
[2024-07-27] MEDS: ACETAMINOPHEN 500 MG TABLET PO ONE (04:21)
== END 2024-07-27 06:52 | disposition left against medical advice (07) ==
LOC: EMS 03:38
DX: M25.561 Pain in right knee (principal); F20.9 Schizophrenia, unspecified; F17.210 Nicotine dependence, cigarettes, uncomplicated; Z59.00 Homelessness unspecified; Z79.899 Other long term (current) drug therapy
CPT/HCPCS: 99282; Z7502; Z7610

== ENCOUNTER 2024-07-30 02:10 | Emergency (ER) | payer OTHER ==
[~2024-07-30] VITALS: Ht 180.3 cm; Wt 77.3 kg
[2024-07-30 02:12] VITALS: BP 125/74; PULSE 90; RESP 18; TEMP 98; O2SAT 99
[2024-07-31] MEDS ORDERED: IBUP-1492 PO (10:29)
== END 2024-07-30 03:22 | disposition home or self-care (01) ==
LOC: EMS 02:10
DX: F20.9 Schizophrenia, unspecified (principal); M25.561 Pain in right knee; M79.671 Pain in right foot; F17.210 Nicotine dependence, cigarettes, uncomplicated; Z59.00 Homelessness unspecified; Z76.5 Malingerer [conscious simulation]; Z79.899 Other long term (current) drug therapy; Z98.890 Other specified postprocedural states
CPT/HCPCS: 99281; Z7502

== ENCOUNTER 2024-07-31 06:42 | Emergency (ER) | payer OTHER ==
[~2024-07-31] VITALS: Ht 180.3 cm; Wt 75.0 kg
[2024-07-31 07:17] VITALS: BP 111/61; PULSE 98; RESP 18; TEMP 98.4; O2SAT 99
[2024-07-31] MEDS ORDERED: IBUP-1492 PO (10:29)
[2024-07-31] MEDS: IBUPROFEN 600 MG TABLET PO ONE (11:07)
== END 2024-07-31 11:10 | disposition home or self-care (01) ==
LOC: EMS 06:44
DX: M25.561 Pain in right knee (principal); M79.671 Pain in right foot; F25.9 Schizoaffective disorder, unspecified; F15.10 Other stimulant abuse, uncomplicated; F17.210 Nicotine dependence, cigarettes, uncomplicated; Z79.899 Other long term (current) drug therapy
CPT/HCPCS: 99282; Z7502; Z7610

== ENCOUNTER 2024-08-03 22:22 | Emergency (ER) | payer OTHER ==
[~2024-08-03] VITALS: Ht 180.3 cm; Wt 77.3 kg
[~2024-08-03 22:22] MED LIST changes: +IBUP-1492 PO
[2024-08-03 22:28] VITALS: BP 110/76; PULSE 97; RESP 18; TEMP 98; O2SAT 100
== END 2024-08-04 01:48 | disposition left against medical advice (07) ==
LOC: EMS 22:26
DX: M25.569 Pain in unspecified knee (principal); Z53.21 Procedure and treatment not carried out due to patient leaving prior to being seen by health care provider

== ENCOUNTER 2024-08-06 00:07 | Emergency (ER) | payer OTHER ==
[~2024-08-06] VITALS: Ht 180.3 cm; Wt 77.3 kg
[2024-08-06 00:22] VITALS: TEMP 97.8
[2024-08-06 01:15] VITALS: BP 107/67; PULSE 85; RESP 18; O2SAT 98
[2024-08-06] MEDS ORDERED: IBUP-1492 PO (03:22)
[2024-08-06] MEDS: TraMADol HCL 50 MG TABLET PO ONE (03:36)
== END 2024-08-06 03:43 | disposition home or self-care (01) ==
LOC: EMS 01:51
DX: M25.561 Pain in right knee (principal); F20.9 Schizophrenia, unspecified; F17.210 Nicotine dependence, cigarettes, uncomplicated; F15.90 Other stimulant use, unspecified, uncomplicated; Z59.00 Homelessness unspecified; Z59.41 Food insecurity; Z79.899 Other long term (current) drug therapy
CPT/HCPCS: 99283

== ENCOUNTER 2024-08-14 02:32 | Emergency (ER) | payer OTHER ==
[~2024-08-14] VITALS: Ht 172.7 cm; Wt 77.3 kg
[2024-08-14 02:34] VITALS: BP 110/92; PULSE 82; RESP 14; TEMP 97.4; O2SAT 98
== END 2024-08-14 03:50 | disposition left against medical advice (07) ==
LOC: EMS 02:32
DX: M79.661 Pain in right lower leg (principal); F20.9 Schizophrenia, unspecified; Z59.00 Homelessness unspecified; Z79.899 Other long term (current) drug therapy
CPT/HCPCS: 99281; Z7502

== ENCOUNTER 2024-08-20 20:34 | Emergency (ER) | payer OTHER ==
[~2024-08-20] VITALS: Ht 180.3 cm; Wt 77.3 kg
[2024-08-20 21:01] VITALS: BP 104/68; PULSE 82; RESP 20; TEMP 97.7; O2SAT 100
== END 2024-08-21 01:06 | disposition home or self-care (01) ==
LOC: EMS 20:34
DX: F20.9 Schizophrenia, unspecified (principal); F17.210 Nicotine dependence, cigarettes, uncomplicated; F15.90 Other stimulant use, unspecified, uncomplicated; Z98.890 Other specified postprocedural states; Z59.00 Homelessness unspecified; Z79.899 Other long term (current) drug therapy
CPT/HCPCS: 99281; Z7502

== ENCOUNTER 2024-10-21 00:03 | Emergency (ER) | payer OTHER ==
[~2024-10-21] VITALS: Ht 177.8 cm; Wt 92.0 kg
[~2024-10-21 00:03] MED LIST changes: +BUPR-50 PO; -BUPR-514 PO
[2024-10-21 00:11] VITALS: BP 145/79; PULSE 88; RESP 16; TEMP 98.6; O2SAT 98
== END 2024-10-21 01:09 | disposition home or self-care (01) ==
LOC: EMS 00:14
DX: M79.672 Pain in left foot (principal); M79.671 Pain in right foot; F20.9 Schizophrenia, unspecified; Z76.5 Malingerer [conscious simulation]; F15.10 Other stimulant abuse, uncomplicated; Z79.899 Other long term (current) drug therapy; Z59.00 Homelessness unspecified; Z72.89 Other problems related to lifestyle
CPT/HCPCS: 99281; Z7502

== ENCOUNTER 2024-10-23 06:37 | Emergency (ER) | payer OTHER ==
[~2024-10-23] VITALS: Ht 180.3 cm; Wt 77.3 kg
[2024-10-23 06:56] VITALS: TEMP 98
[2024-10-23 12:15] VITALS: BP 133/84; PULSE 92; RESP 16; O2SAT 100
== END 2024-10-23 12:16 | disposition home or self-care (01) ==
LOC: EMS 06:41
DX: F15.10 Other stimulant abuse, uncomplicated (principal); F20.9 Schizophrenia, unspecified; F17.210 Nicotine dependence, cigarettes, uncomplicated; Z59.00 Homelessness unspecified; Z79.899 Other long term (current) drug therapy
CPT/HCPCS: 99281; Z7502

== ENCOUNTER 2024-11-19 02:03 | Emergency (ER) | payer OTHER ==
[~2024-11-19] VITALS: Ht 180.3 cm; Wt 77.0 kg
[2024-11-19 02:04] VITALS: BP 132/81; PULSE 89; RESP 20; TEMP 98.2; O2SAT 99
[2024-11-19 02:35] LABS: COVID AG,FIA SOURCE NASAL SWAB
[2024-11-19 02:40] LABS: BASOPHILS % (AUTO) 1.2 % (0.0-2.0); HEMATOCRIT 39.4 % (41-53); HEMOGLOBIN 12.9 g/dL (13.5-17.5); LYMPHOCYTES # (AUTO) 1.8 K/uL (1.0-4.8); LYMPHOCYTES % (AUTO) 28.1 % (22.0-44.0); MEAN CORPUSCULAR HEMOGLOBIN 28.9 pg (26.0-34.0); MEAN CORPUSCULAR HGB CONC 32.8 G/dL (31.0-37.0); MEAN CORPUSCULAR VOLUME 88 fL (80-100); MONOCYTES # (AUTO) 0.6 K/uL (0.1-1.0); MONOCYTES % (AUTO) 8.6 % (2.0-9.0); NEUTROPHILS # (AUTO) 3.7 K/uL (1.8-7.7); NEUTROPHILS % (AUTO) 58.1 % (40.0-70.0); PLATELET COUNT (AUTO) 275 K/uL (150-450); RED BLOOD CELL COUNT(AUTO) 4.46 MIL/uL (4.50-5.90); RED CELL DISTRIBUTION WIDTH 14.6 % (11.5-14.5); WHITE BLOOD COUNT (AUTO) 6.4 K/uL (4.5-11.0)
[2024-11-19 02:44] LABS: ALCOHOL, URINE DRUG SCREEN NEGATIVE (NEGATIVE); AMPHET/METH SCREEN,URINE POSITIVE (NEGATIVE); BARBITURATE SCREEN, URINE NEGATIVE (NEGATIVE); BENZODIAZEPINES SCREEN,URINE NEGATIVE (NEGATIVE); CANNABINOID SCREEN,URINE NEGATIVE (NEGATIVE); COCAINE SCREEN,URINE NEGATIVE (NEGATIVE); METHADONE SCREEN, URINE NEGATIVE (NEGATIVE); OPIATE SCREEN,URINE NEGATIVE (NEGATIVE); PHENCYCLIDINE SCREEN,URINE NEGATIVE (NEGATIVE)
[2024-11-19 02:44] LABS: ANION GAP 5 mmol/L (8-16); CALCIUM, TOTAL 8.6 mg/dL (8.8-10.5); CARBON DIOXIDE 31 mmol/L (22-29); CHLORIDE 102 mmol/L (98-107); CREATININE 0.93 mg/dL (0.60-1.30); GLOMERULAR FILTR. RATE CALC > 60 mL/min (>60); GLUCOSE,RANDOM 85 mg/dL (70-110); POTASSIUM 3.7 mmol/L (3.5-5.1); SODIUM SERUM 138 mmol/L (136-145); UREA NITROGEN, BLOOD 14 mg/dL (7-18)
[2024-11-19 02:53] LABS: SARS-COV2 (COVID) ANTIGEN,FIA Negative (Negative)
== END 2024-11-19 03:11 | disposition home or self-care (01) ==
LOC: EMS 02:04
DX: F20.9 Schizophrenia, unspecified (principal); J44.9 Chronic obstructive pulmonary disease, unspecified; Z59.00 Homelessness unspecified; Z79.899 Other long term (current) drug therapy; Z20.822 Contact with and (suspected) exposure to COVID-19
CPT/HCPCS: 99283; 87426; 80048; 85025; 36415; 80307; G0480

== ENCOUNTER 2024-12-13 08:09 | Emergency (ER) | payer OTHER ==
[~2024-12-13] VITALS: Ht 180.3 cm; Wt 77.0 kg
[2024-12-13 08:15] VITALS: BP 117/90; PULSE 94; RESP 20; TEMP 97.9; O2SAT 98
== END 2024-12-13 09:55 | disposition left against medical advice (07) ==
LOC: EMS 08:09
DX: R10.9 Unspecified abdominal pain (principal); Z53.21 Procedure and treatment not carried out due to patient leaving prior to being seen by health care provider
CPT/HCPCS: 99281; Z7502

== ENCOUNTER 2025-01-11 03:56 | Emergency (ER) | payer OTHER ==
[~2025-01-11] VITALS: Ht 180.3 cm; Wt 77.3 kg
[2025-01-11 04:03] VITALS: TEMP 97.2
[2025-01-11 04:15] VITALS: BP 119/65; PULSE 78; RESP 16; O2SAT 98
[2025-01-11] MEDS: BACITRACIN 0.9 GM PACKET OINTMENT TP ONE (04:30)
== END 2025-01-11 04:50 | disposition home or self-care (01) ==
LOC: EMS 03:56
DX: T25.211A Burn of second degree of right ankle, initial encounter (principal); T31.0 Burns involving less than 10% of body surface; J44.9 Chronic obstructive pulmonary disease, unspecified; F20.9 Schizophrenia, unspecified; F15.90 Other stimulant use, unspecified, uncomplicated; F17.210 Nicotine dependence, cigarettes, uncomplicated; Z79.899 Other long term (current) drug therapy; Z59.00 Homelessness unspecified; Z98.890 Other specified postprocedural states; X58.XXXA Exposure to other specified factors, initial encounter; Y93.01 Activity, walking, marching and hiking; Y92.89 Other specified places as the place of occurrence of the external cause; Y99.8 Other external cause status
CPT/HCPCS: 16020; 99282; Z7502; Z7610

== ENCOUNTER 2025-01-25 22:54 | Emergency (ER) | payer OTHER ==
[~2025-01-25] VITALS: Ht 177.8 cm; Wt 63.6 kg
[2025-01-25 23:15] VITALS: TEMP 98.6
[2025-01-25 23:42] LABS: PLATELET COUNT (AUTO) 288 K/uL (150-450); RED BLOOD CELL COUNT(AUTO) 4.17 MIL/uL (4.50-5.90); RED CELL DISTRIBUTION WIDTH 15.0 % (11.5-14.5); WHITE BLOOD COUNT (AUTO) 6.1 K/uL (4.5-11.0)
[2025-01-25 23:49] LABS: CALCIUM, TOTAL 8.7 mg/dL (8.8-10.5); CREATININE 0.99 mg/dL (0.60-1.30); GLOMERULAR FILTR. RATE CALC > 60 mL/min (>60); GLUCOSE,RANDOM 114 mg/dL (70-110); SODIUM SERUM 143 mmol/L (136-145); UREA NITROGEN, BLOOD 15 mg/dL (7-18)
[2025-01-25 23:55] LABS: ASPARTATE AMINOTRANSFERASE 16 U/L (15-37); TOTAL PROTEIN, SERUM 7.3 g/dL (6.4-8.2)
[2025-01-26 00:06] LABS: ALCOHOL, BLOOD (SERUM) < 3 mg/dL (0-10)
[2025-01-26 00:25] LABS: COVID AG,FIA SOURCE NASAL SWAB
[2025-01-26 00:36] LABS: SARS-COV2 (COVID) ANTIGEN,FIA Negative (Negative)
[2025-01-26 02:30] VITALS: BP 117/85; PULSE 51; RESP 15; O2SAT 100
== END 2025-01-26 02:43 | disposition home or self-care (01) ==
LOC: EMS 22:54
DX: R11.2 Nausea with vomiting, unspecified (principal); F20.9 Schizophrenia, unspecified; J44.9 Chronic obstructive pulmonary disease, unspecified; F15.90 Other stimulant use, unspecified, uncomplicated; F17.210 Nicotine dependence, cigarettes, uncomplicated; Z59.00 Homelessness unspecified; Z79.899 Other long term (current) drug therapy; Z98.890 Other specified postprocedural states; Z20.822 Contact with and (suspected) exposure to COVID-19
CPT/HCPCS: 99284; 87426; 80048; 80076; 85025; 36415; 93005; G0480; G0481

== ENCOUNTER 2025-02-26 02:39 | Emergency (ER) | payer OTHER ==
[~2025-02-26] VITALS: Ht 180.3 cm; Wt 77.3 kg
[2025-02-26 02:47] VITALS: BP 111/69; PULSE 84; RESP 16; TEMP 97.9; O2SAT 100
== END 2025-02-26 03:24 | disposition left against medical advice (07) ==
LOC: EMS 02:40
DX: F41.9 Anxiety disorder, unspecified (principal); Z53.21 Procedure and treatment not carried out due to patient leaving prior to being seen by health care provider

== ENCOUNTER 2025-04-20 20:48 | Emergency (ER) | payer MEDICAID, OTHER ==
[~2025-04-20] VITALS: Ht 177.8 cm; Wt 75.0 kg
[2025-04-20 20:50] VITALS: BP 116/81; PULSE 90; RESP 18; TEMP 98.2; O2SAT 99
== END 2025-04-21 00:58 | disposition left against medical advice (07) ==
LOC: EMS 20:49
DX: M79.672 Pain in left foot (principal); Z53.21 Procedure and treatment not carried out due to patient leaving prior to being seen by health care provider
CPT/HCPCS: 82962; 99281

== ENCOUNTER 2025-04-21 03:22 | Emergency (ER) | payer MEDICAID ==
[~2025-04-21] VITALS: Ht 177.8 cm; Wt 75.0 kg
[2025-04-21 03:30] VITALS: BP 105/87; PULSE 95; RESP 18; TEMP 98.1; O2SAT 98
== END 2025-04-21 05:34 | disposition left against medical advice (07) ==
LOC: EMS 03:25
DX: M79.672 Pain in left foot (principal); Z53.21 Procedure and treatment not carried out due to patient leaving prior to being seen by health care provider
CPT/HCPCS: 99281; Z7502